=== PATIENT | male | born 1990 | race Caucasian/White ===

== ENCOUNTER 2018-04-25 08:42 | Emergency (ER) | payer BC ==
[2018-04-25] MEDS ORDERED: Ketorolac 60 MG/2 ML SDV IM ONE (10:05)
--- NOTE | 2018-04-25 10:12 | EDM.PDOC ---
ED HPI GENERAL MEDICAL PROBLEM - General Chief Complaint: General Stated Complaint: tooth pain Time Seen by Provider: 04/25/18 09:45 Source of Information: Reports: Patient History Limitations: Reports: No Limitations - History of Present Illness Onset Date: 04/23/18 Location: Reports: Other (tooth #6 pain) Quality: Reports: Throbbing Severity: Severe Associated Symptoms: Reports: No Other Symptoms Left Face/Facial Pain Score (Numeric/FACES): 10 - Related Data Allergies Allergy/AdvReac Type Severity Reaction Status Date / Time No Known Allergies Allergy Verified 04/25/18 09:07 Home Meds: Home Meds Ibuprofen 600 mg PO TID PRN 04/25/18 [History] Past Medical History - Past Surgical History GI Surgical History: Reports: Appendectomy Social & Family History - Tobacco Use Smoking Status *Q: Heavy Tobacco Smoker Years of Tobacco use: 15 Packs/Tins Daily: 1 - Caffeine Use Caffeine Use: Reports: Coffee - Recreational Drug Use Recreational Drug Use: No ED ROS GENERAL - Review of Systems Review Of Systems: ROS reveals no pertinent complaints other than HPI. Constitutional: Reports: No Symptoms HEENT: Reports: No Symptoms ED EXAM, GENERAL - Physical Exam Exam: See Below Exam Limited By: No Limitations General Appearance: Alert, WD/WN, Moderate Distress Throat/Mouth: Other (gumline at base of where tooth # 6 was in erythematous. No palpable masses. No lymphadenopathy. ) Course - Vital Signs Text/Narrative:: Patient presents to ER accompanied by mother for tooth pain unrelieved anymore with OTC analgesia. Has appointment for community [facility] clinic on May 05, 2018 , but told to come to ER if pain warranted. IM toradol given; prescription for [place] (five) and Amoxicillin given. Instructed to take Ibuprofen 600 mg QID and antibiotics until gone. Patient and mother expressed understanding of instructions. Told to arrive at dental clinic at 8:15 and anticipate waiting for the practitioner to schedule him in. Last Recorded V/S: Last Vital Signs Temp 36.3 C 04/25/18 09:08 Pulse 53 L 04/25/18 09:08 Resp 12 04/25/18 09:08 BP 146/76 H 04/25/18 09:08 Pulse Ox 100 04/25/18 09:08 - Orders/Labs/Meds Meds: Medications Discontinued Medications Generic Name Dose Route Start Last Admin Trade Name Freq PRN Reason Stop Dose Admin Ketorolac Tromethamine 60 mg 04/25/18 10:05 04/25/18 10:11 Toradol IM 04/25/18 10:06 60 mg ONETIME ONE Administration Departure - Departure Time of Disposition: 10:10 Disposition: Home, Self-Care 01 Condition: Good Clinical Impression: Pain, Tooth infection - Discharge Information *PRESCRIPTION DRUG MONITORING PROGRAM REVIEWED*: Not Applicable *COPY OF PRESCRIPTION DRUG MONITORING REPORT IN PATIENT STUART: Not Applicable Instructions: Tooth Injuries, [id number] Referrals: PCP,None [Primary Care Provider] - Forms: ED Department Discharge Care Plan Goals: Prescriptions: Amoxicillin 500mg PO TID [place] 5/325 PO Q 6 hours x five for pain Referred to [facility] dental clinic to report tomorrow morning. Instructed to continue Ibuprofen 600 mg PO QID and use [place] as break through pain medication.
== END 2018-04-25 10:28 | disposition home or self-care (01) ==
LOC: JP.ED 08:42
DX: K04.7 Periapical abscess without sinus (principal); F17.210 Nicotine dependence, cigarettes, uncomplicated; Z90.49 Acquired absence of other specified parts of digestive tract
CPT/HCPCS: 96372; 99283; J1885